=== PATIENT | female | born 1950 | race Hispanic/Latino ===

== ENCOUNTER 2016-08-24 10:16 | Emergency (ER) | payer OTHER ==
[~2016-08-24] VITALS: Ht 157.5 cm; Wt 74.8 kg
[~2016-08-24 10:16] MED LIST: AMLODIPINE BESY10 M1 PO; ASPIRIN EC81 M1 PO; ATIVAN0.5 M1 PO; CYCLOBENZAPRINE10 MG PO; DOXAZOSIN MESYLA2 M1 PO; FLEXERIL 10MG T10 MG PO; HYDROCHLOROTHIA25 M1 PO; LEVOCETIRIZINE D5 M1 PO; LISINOPRIL20 MG PO; LOPRESSOR100 M1 PO; LOSARTAN POTAS100 M1 PO; PRAVASTATIN SOD10 MG PO; PRILOSEC 20MG C20 MG PO; TRAMADOL HCL50 MG PO; TUMS500 MG PO
--- NOTE | 2016-08-24 10:33 | ED UPPER/LOWER EXTREMITY COMPL ---
History of Present Illness General Chief Complaint: Lower Extremity Problems Stated Complaint: RT KNEE PAIN BIBA Source: patient, old records, EMS Exam Limitations: no limitations Vital Signs & Intake/Output Vital Signs & Intake/Output Vital Signs Date Time Temp Pulse Resp B/P Pulse O2 O2 Flow FiO2 Ox Delivery Rate 08/24 1245 98.7 70 20 120/70 96 Room Air 08/24 1058 98.7 68 20 123/64 94 Room Air 08/24 1021 97.0 70 18 123/67 96 Room Air Allergies Coded Allergies: aspirin (GI BLEEDING 10/05/15) Reconcile Medications Amlodipine Besylate 10 MG TABLET 1 TAB PO DAILY HEART (Reported) Aspirin (Ecotrin*) 81 MG TABLET.DR 1 TAB PO DAILY . (Reported) Doxazosin Mesylate 2 MG TABLET 1 TAB PO AT BEDTIME . (Reported) Hydrochlorothiazide 25 MG TABLET 1 TAB PO DAILY HTN (Reported) Levocetirizine Dihydrochloride 5 MG TABLET 1 TAB PO DAILY UNKNOWN (Reported) Lisinopril 20 MG TABLET 2 TAB PO DAILY HTN (Reported) Losartan Potassium 100 MG TABLET 1 TAB PO DAILY HEART (Reported) Metoprolol Tartrate (Lopressor) 100 MG TABLET 1 TAB PO BID HEART (Reported) Omeprazole 20 MG CAPSULE.DR 1 CAP PO DAILY GASTRIC ULCER (Reported) Oxycodone HCl/Acetaminophen (Percocet 5-325 MG Tablet) 5 MG-325 MG TABLET 1 TAB PO BID PRN pain Pantoprazole Sodium 40 MG TABLET.DR 1 TAB PO DAILY GI (Reported) Pravastatin Sodium 10 MG TABLET 2 TAB PO DAILY CHOLESTEROL (Reported) Tramadol HCl 50 MG TABLET 1 TAB PO Q4-6 PRN PRN PAIN (Reported) Triage Note: PT BIBA FROM HOME FOR C/O RIGHT KNEE PAIN. PT IS S/P 2 INJECTIONS OF SYNVISC FOR OSTEOARTHRITIS. LAST INJECTION 08/22. PT GOES TO [facility] FOR INJECTIONS. ARRIVES TO TODAY C/O WORSENING PAIN TO RIGHT KNEE. PAIN ALSO RADIATES TO B/L HIPS. AWAITING EVAL. VSS. CHANGED INTO GOWN. Triage Nurses Notes Reviewed? yes Onset: Gradual Duration: day(s): (3), constant Timing: recent history Severity: mild, moderate Severity Numbers: 8 Pain/Injury Location: Bilateral: Hip. Method of Injury: unknown Modifying Factors: Improves With: pain medication, rest. Worsens With: movement. Associated Symptoms: none HPI: 65-year-old female with history of hypertension coronary artery disease arthritis presents emergency room brought in by ambulance complaining of bilateral hip pain that she's had for the past 3 days. The patient is status post 2 injections of [address]isc by dr benitez this past week to her right knee. The patient denies any specific knee pain. The pain to her hips is nonradiating. Her last dose of tramadol was last night which was helping for her symptoms. There's been no recent trauma or fall.. She denies any redness warmth or swelling to her knee no fevers or chills. She is scheduled to see her orthopedic physician again in 5 days. The patient denies any back, neck pain no chest pain abdominal pain nausea vomiting no urinary symptoms Contrary to triage note patient denies any knee pain to myself (JOANNE SIEGEL) Past History Travel History Traveled to [place] past 21 day No Medical History Any Pertinent Medical History? see below for history Neurological: NONE EENT: NONE Cardiovascular: hypertension, hyperlipidemia Respiratory: NONE Gastrointestinal: upper GI bleed, (FROM ASPIRIN 46 YRS AGO) Hepatic: NONE Renal: NONE Musculoskeletal: osteoarthritis Psychiatric: NONE Endocrine: NONE Blood Disorders: NONE Cancer(s): NONE LAB TECHNICIAN/Reproductive: NONE History of CDIFF: No Surgical History Surgical History: tubal ligation, cervical disc surgery x 2 Psychosocial History Services at Home None What is your primary language Serbian Tobacco Use: Never used ETOH Use: denies use Illicit Drug Use: denies illicit drug use Family History Family History, If Any: FATHER Relation not specified for: FH: diabetes mellitus Hx Contributory? No (JOANNE SIEGEL) Review of Systems Review of Systems Constitutional: Reports: see HPI. All Other Systems: Reviewed and Negative Comments Review of systems: See HPI, All other systems negative. Constitutional, no chills no fever, no malaise HEENT: No visual changes no sore throat no congestion Cardiovascular: No chest pain , no palpitation Skin,no rashes, no change in skin Respiratory: No dyspnea no cough no sputum GI: No nausea no vomiting, no diarrhea : No dysuria Muscle skeletal: joint pain, no joint swelling, no back pain, no neck pain, Neurologic: No numbness no confusion, no headache Psych: No stress,. Heme/endocrine: No bruising no bleeding Immunology: No lymphadenopathy, (JOANNE SIEGEL) Physical Exam Physical Exam General Appearance: well developed/nourished, alert, awake Comments: Well-developed well-nourished patient in no apparent distress. HEENT: Atraumatic, extraocular motion intact Neck: Supple, FROM, Back: FROM, Nontender Cardiovascular: Regular rate and rhythms no murmurs rubs or gallops, Respiratory: No respiratory distress. Patient speaking in full complete sentences. Breath sounds clear to auscultation bilaterally: NO W/R/R Upper Extremities: full range of motion Hip/Pelvis: Atraumatic/Stable. FROM. No pain with pelvic compression Knee: Mild ecchymosis over the lateral aspect of the right knee, there is no stranding erythema induration fluctuance no warmth, FROM. No joint swelling, no effusion. No laxity. Negative aruna/anterior drawer test. No pain with ROM Leg: Atraumatic. Nontender. No edema, 5 out of 5 strength in the lower extremity, normal dorsiflexion of great toe bilaterally, gross sensation is intact, patellar tendon reflex 2+ bilaterally. Ankle/Foot: Atraumatic/stable. Skin intact. FROM. No swelling, no effusion. No laxity on exam Pulses: Normal/equal DP/PT pulses bilaterally. Brisk cap refill Neuro: Alert and oriented x3 Skin: Warm & dry;No appreciable rash on exposed skin Psych: Mood affect normal, normal memory normal judgment. (JOANNE SIEGEL) Progress Differential Diagnosis: compartment syndrome, contusion, dislocation, fracture, gout, septic arthritis, sprain, tendon injury Plan of Care: Orders Procedure Date/time Status XRY-AP PELVIS 08/24 1032 Active XRY-KNEE COMPLETE RIGHT 08/24 1032 Active X-rays ordered patient medicated with tramadol I discussed with the patient at length all of their results. I had an extensive conversation regarding need for close follow up with their primary care physician as well as her orthopedist dr benitez whom she is scheduled to see this week as well as return precautions. I answered all of their questions, they feel comfortable with the plan and follow-up care. I discussed the medications that they will receive with the patient. I gave them signs and symptoms that could indicate an adverse reaction. I have advised them to limit their activities until they can see how they respond to the medication. (JOANNE SIEGEL) Diagnostic Imaging: Viewed by Me: Radiology Read. Discussed w/RAD: Radiology Read. Radiology Impression: PATIENT: RENETTA AGUILAR PRESENT AGE: 65 PATIENT ACCOUNT NO: [id number] : 48 LOCATION: [facility] ORDERING PHYSICIAN: JOANNE HENDERSON SERVICE DATE: 08/24/16 EXAM TYPE: RAD - XRY-AP PELVIS; XRY-KNEE COMPLETE RIGHT EXAMINATION: XR PELVIS and right knee CLINICAL INFORMATION: Pain COMPARISON: January 19, 2015 TECHNIQUE: AP view of the pelvis. 4 view right knee FINDINGS: There is no evidence of acute fracture or dislocation of the right knee. There is moderate narrowing of the medial joint space compartment. There is a right knee effusion. There is some spurring about the patellofemoral joint. There is no evidence of acute fracture or diastases of the pelvis. Hip joints appear maintained. Osteitis pubis is noted. There is sclerosis involving the inferior two thirds of the sacroiliac joints bilaterally. Changes of enthesopathy present. There is question of possible left iliac exostosis or postsurgical change. Facet arthropathy is seen at the L4-L5 and L5-S1 disc space levels. IMPRESSION: Degenerative change of the medial joint space compartment and patellofemoral joint right knee with right knee effusion. No acute fracture identified. Osteitis pubis and bilateral sacroiliitis. Facet arthropathy lower lumbar spine. No acute fracture or diastases of the pelvis. DICTATED BY: MARGARITO FIORE MD DATE/TIME DICTATED:08/24 ORAL SURGEON:DYANA DATE/TIME TRANSCRIBED:08/24/161103 CONFIDENTIAL, DO NOT COPY WITHOUT APPROPRIATE AUTHORIZATION. <Electronically signed in Other Vendor System> SIGNED BY: MARGARITO FIORE MD 08/24/16 1116 (JOANNE SIEGEL) Departure Departure Time of Disposition: 1146 Disposition: HOME OR SELF CARE Condition: Stable Clinical Impression Primary Impression: Arthritis Secondary Impressions: Knee effusion Referrals: IRAM GONZALEZ APRN (PCP/Family) Additional Instructions: follow up with your orthopedist dr benitez as scheduled.percocet for breakthrough pain this was sent to your [facility]. this may make you drowsy- use caution Ice as needed, return at anytime sooner with any concerns Departure Forms: Customer Survey General Discharge Information Prescriptions: Current Visit Scripts Oxycodone HCl/Acetaminophen (Percocet 5-325 MG Tablet) 1 TAB PO BID PRN pain #8 TAB (JOANNE SIEGEL) PA/RELIGIOUS EDUCATION COORDINATOR Co-Sign Statement Statement: ED Attending supervision documentation- x I saw and evaluated the patient. I have also reviewed all the pertinent lab results and diagnostic results. I agree with the findings and the plan of care as documented in the PA's/RELIGIOUS EDUCATION COORDINATOR's documentation. [] I have reviewed the ED Record and agree with the PA's/RELIGIOUS EDUCATION COORDINATOR's documentation. [] Additions or exceptions (if any) to the PAs/RELIGIOUS EDUCATION COORDINATOR's note and plan are summarized below: [] (SHYANN SALMON,FREDERICK)
--- NOTE | 2016-08-24 11:16 | RADIOLOGY REPORT ---
EXAMINATION: XR PELVIS and right knee CLINICAL INFORMATION: Pain COMPARISON: January 19, 2015 TECHNIQUE: AP view of the pelvis. 4 view right knee FINDINGS: There is no evidence of acute fracture or dislocation of the right knee. There is moderate narrowing of the medial joint space compartment. There is a right knee effusion. There is some spurring about the patellofemoral joint. There is no evidence of acute fracture or diastases of the pelvis. Hip joints appear maintained. Osteitis pubis is noted. There is sclerosis involving the inferior two thirds of the sacroiliac joints bilaterally. Changes of enthesopathy present. There is question of possible left iliac exostosis or postsurgical change. Facet arthropathy is seen at the L4-L5 and L5-S1 disc space levels. IMPRESSION: Degenerative change of the medial joint space compartment and patellofemoral joint right knee with right knee effusion. No acute fracture identified. Osteitis pubis and bilateral sacroiliitis. Facet arthropathy lower lumbar spine. No acute fracture or diastases of the pelvis.
[2016-08-24] MEDS ORDERED: TRAMADOL HCL50 M1 PO (11:33)
[2016-08-24] MEDS ORDERED: PRAVASTATIN SOD10 M2 PO (11:34)
[2016-08-24] MEDS ORDERED: OMEPRAZOLE20 M2 PO (11:35)
[2016-08-24] MEDS ORDERED: PANTOPRAZOLE SO40 M1 PO (11:36)
[2016-08-24] MEDS ORDERED: LISINOPRIL20 M1 PO (11:37)
[2016-08-24] MEDS ORDERED: PERCOCET 5-3251 EACH PO (12:14)
[2016-08-24 12:45] VITALS: BP 120/70
== END 2016-08-24 13:00 ==
LOC: ERH 10:16
DX: M17.9 Osteoarthritis of knee, unspecified (principal); M25.461 Effusion, right knee; M25.551 Pain in right hip; M25.552 Pain in left hip
CPT/HCPCS: 72170; 73562-RT

== ENCOUNTER 2017-06-17 05:13 | Inpatient (IN) | payer OTHER ==
[~2017-06-17] VITALS: Ht 160 cm; Wt 73.7 kg
[~2017-06-17 05:13] MED LIST changes: +LISINOPRIL20 M1 PO; +OMEPRAZOLE20 M2 PO; +PANTOPRAZOLE SO40 M1 PO; +PERCOCET 5-3251 EACH PO; +PRAVASTATIN SOD10 M2 PO; +TRAMADOL HCL50 M1 PO
--- NOTE | 2017-06-17 09:31 | Operative Report ---
Operative/Inv Procedure Report Surgery Date: 06/17/17 Name of Procedure: Left total knee arthroplasty Pre-Operative Diagnosis: Primary arthritis left knee Post-Operative Diagnosis: Same Estimated Blood Loss: less than 50ml Surgeon/Joinery Machinist: Ld Gray MD,Carlos Corcoran Anesthesia: block (SPINAL) IV Fluids: See anesthesia record Implants: Striker triathlon posterior stabilize knee size 3 femur, size 3 tibial baseplate , 27 patella 13 mm polyethylene insert Drains: None Specimens: Bone Tourniquet: 47 minutes Complications: None Condition: Stable Operative Indication: Patient is a 58-year-old female failed conservative treatment for osteoarthritis of the left knee. She was indicated for left total knee arthroscopy. This and benefits of procedure discussed with the patient detail in the office. Skilled set of hands was necessary provided by Ld Lucia physician assistant sales director weighted with limb positioning retraction component assembly throughout the case. Operative/Procedure Note Note: Once informed consent was obtained and the correct limb was identified patient brought to room placed on table in the supine position. After initiation of spinal anesthesia patient had a De León catheter placed and a thigh tourniquet placed on left lower extremity and left lower 70 is prepped and draped usual sterile fashion. To begin the procedure standard midline incision was made for total knee arthroplasty. Sharp dissection was carried down through skin and subcutaneous tissue and fat. A medial parapatellar arthrotomy was performed and the patella was everted. Fat pad is removed from the patellar tendon. The patellar thickness was measured and a planned resection of 9 mm of bone was taken off of the patella. Patella was measured be a size 27 patellar button and the lug holes were drilled for the patellar button. At this point patella was retracted laterally and protected and the knee was placed in flexion. Z retractors were placed to protect the collateral ligaments. Step drill was used to enter the intramedullary canal the femur. The distal femoral intramedullary cutting guide was placed with a 5 valgus cut and 10 mm resection set. Distal femoral cut was made without, patient. Femur sized to be a size 3 femur. A size 3 4-in-1 cutting block was placed and distal femur and the anterior, posterior, chamfer cuts were made. Once this was done the size 3 box cut guide was placed on the femur and a box cut was made for posterior stabilized knee. Posterior osteophytes removed off the posterior femoral condyles with curved osteotome. The lateral medial menisci were resected sharply. The cruciate limits had been resected and the tibia was translated anteriorly with a pickle fork retractor. Intramedullary canal the tibia was entered with a step drill and the intramedullary cutting guide for the tibia was placed. A plan resection of 4 mm of bone off the affected side was done without complication. Tibia sized to be a size 3 tibial baseplate. Trial reduction was done with size 3 tibial baseplate and a size 3 femur.. A size 11 mm Andrea plate was trial was placed and the knee was placed into extension. The knee was slightly loose and lacks to varus and valgus stress at 0 and 60 and we went up to a 13 mm polyethylene insert. Knee had full extension with this or insert and was stable to varus and valgus stress at 0 and 60. Knee had full range of motion from 0- 110 of flexion. Knee was taken through a range of motion and patella tracked nicely in the rotation of the tibial component was marked. The components were made removed and the tibial component was pinned in place with the keel cut. Keel cut was made and then removed the knee was pulse lavaged. Cement was mixed on the back table. The components were cemented in place with the tibial component cemented first followed by the femoral component. Excess cement was removed with curettes. The knee is placed in extension with a 13 mm trial insert. The patella button was then cemented in place. Once the cement had hardened the knee was taken through a range of motion found be stable. A 13 mm polyethylene insert was opened and locked into the tibial tray. The tourniquet was released and bleeding was stopped with electrocautery. X Burrall was infiltrated into the tissues for pain relief postoperatively. The arthrotomy is closed #1 Vicryl sutures. Subcutaneous tissues closed with #1 Vicryl and 2-0 Vicryl interrupted sutures. A sterile dressing was applied and patient was awakened taken recovery in stable condition.
--- NOTE | 2017-06-17 10:31 | Admission Core Measures ---
Acute Coronary Syndrome (CM) ACS Core Measures Acute Coronary Syndrome Diagnosis No Congestive Heart Failure (NEW) CHF Core Measures Congestive Heart Failure Diagnosis No Cerebrovascular Accident (NEW) CVA Core Measures CVA/TIA Diagnosis No Venous Thromboembolism VTE Core Shanti (View Protocol) VTE Risk Factors Surgery No Mechanical VTE Prophylaxis d/t N/A MechProphylax Ordered No VTE Pharm Prophylaxis d/t NA PharmProphylax ordered Problem List As ranked by this Provider includes Assessment & Plan 1. Primary osteoarthritis of left knee HOME MEDS Home Med List Aspirin (Ecotrin*) 81 MG TABLET.DR 1 TAB PO DAILY . (Reported) Doxazosin Mesylate 2 MG TABLET 1 TAB PO AT BEDTIME . (Reported) Levocetirizine Dihydrochloride 5 MG TABLET 1 TAB PO DAILY UNKNOWN (Reported) Losartan Potassium 100 MG TABLET 1 TAB PO DAILY HEART (Reported) Metoprolol Tartrate (Lopressor) 100 MG TABLET 1 TAB PO BID HEART (Reported) Omeprazole 20 MG CAPSULE.DR 1 CAP PO DAILY GASTRIC ULCER (Reported) Pantoprazole Sodium 40 MG TABLET.DR 1 TAB PO DAILY GI (Reported) Pravastatin Sodium 10 MG TABLET 2 TAB PO DAILY CHOLESTEROL (Reported)
--- NOTE | 2017-06-17 10:34 | Surgical Discharge Summary ---
Visit Information Visit Dates Admission Date: 06/17/17 History of Present Illness Chief Complaint: Left knee joint pain Medical History Neurological: NONE EENT: NONE Cardiovascular: hypertension, hyperlipidemia Respiratory: NONE Gastrointestinal: upper GI bleed, (FROM ASPIRIN 46 YRS AGO) Hepatic: NONE Renal: NONE Musculoskeletal: osteoarthritis Psychiatric: NONE Endocrine: NONE Blood Disorders: NONE Cancer(s): NONE ADJUNCT NURSING FACULTY/Reproductive: NONE History of CDIFF: No Surgical History Pertinent Surgical History: knee replacement (L 06/17/17), tubal ligation, cervical disc surgery x 2 Family History Relations & Conditions If Any: FATHER Relation not specified for: FH: diabetes mellitus Psychosocial History Services at Home: None What is Your Primary Language? Guatemalan Review of Systems: Refer to H&P Hospital Course Course Attending Physician: Carlos Gray MD [facility]: Patient underwent a L TKR by Dr Gray and was brought to the PACU in stable condition. Over the post op course, she worked with PT and was WBAT. She voided spontaneously and her pain was controlled with oral medication. She was deemed stable for discharge to [facility]/home with services. Allergies: Coded Allergies: aspirin (GI BLEEDING 10/05/15) Significant Procedures: L TKR on 06/17/17 Disposition Summary Disposition Principal Diagnosis: Left knee osteoarthritis Additional Diagnosis: Same, s/p L TKR Discharge Instructions General Discharge Information Code Status: Full Code Patient's Diet: Regular Patient's Activity: WBAT Follow-Up Instructions/Appts: [address] Gray, instructed to call sooner if needed. Copies To: Audi SALMON PHD,Luis E Spann
[2017-06-17] MEDS ORDERED: ELIQUIS2.5 M1 PO (10:39)
[2017-06-17] MEDS ORDERED: PERCOCET 5-3251 EACH PO (10:39)
--- NOTE | 2017-06-17 10:39 | Patient Discharge Instructions ---
Discharge Instructions General Discharge Information You were seen/treated for: Left knee osteoarthritis You had these procedures: Left total knee replacement Watch for these problems: Temp >101.3 F, increased redness or drainage of wounds Other wound care: Keep incisions clean and dry. May shower no bathing or soaking Diet Continue normal diet: Yes Activity Activity Self Limited: Yes Activity Limited to: Weight bear as tolerated Acute Coronary Syndrome Inclusion Criteria At DC or during hospital stay patient has or had the following: ACS DIAGNOSIS No Discharge Core Measures Meds if any: Prescribed or Continued at Discharge Meds if any: NOT Prescribed or Continued at Discharge Congestive Heart Failure Inclusion Criteria At DC or during hospital stay patient has or had the following: CHF DIAGNOSIS No Discharge Core Measures Meds if any: Prescribed or Continued at Discharge Meds if any: NOT Prescribed or Continued at Discharge Cerebrovascular accident Inclusion Criteria At DC or during hospital stay patient has or had the following: CVA/TIA Diagnosis No Discharge Core Measures Meds if any: Prescribed or Continued at Discharge Meds if any: NOT Prescribed or Continued at Discharge Venous thromboembolism Inclusion Criteria VTE Diagnosis No VTE Type NONE VTE Confirmed by (Test) NONE Discharge Core Measures - Per Current guidelines, there needs to be overlap - treatment for the first 5 days of Warfarin therapy. - If discharged on Warfarin prior to 5 days of - overlap therapy, the patient will need to be - assessed for post discharge needs including - *Post discharge parental anticoagulation - *Warfarin and/or parental anticoagulation education - *Follow up date to check INR post discharge At least 5 days overlap therapy as Inpatient No Meds if any: Prescribed or Continued at Discharge Note: Overlap Therapy is Warfarin and Anticoagulant Meds if any: NOT Prescribed or Continued at Discharge
[2017-06-17 11:50] VITALS: BP 120/72
--- NOTE | 2017-06-17 14:17 | PN- Orthopedic ---
Subjective Subjective: Postop check: Complaints of mild nausea, no abdominal pain. Left lower extremity pain. No acute events postoperatively Objective Vital Signs and I&Os Vital Signs Date Time Temp Pulse Resp B/P B/P Pulse O2 O2 Flow FiO2 Mean Ox Delivery Rate 06/17 1150 97.6 82 18 120/72 93 Room Air Intake & Output 06/17 1600 06/17 0800 06/17 0000 06/16 1600 06/16 0800 06/16 0000 Intake Total Output Total Balance Patient 162 lb Weight Physical Exam: Well-developed well-nourished no apparent distress. HEENT: Atraumatic, extraocular motion intact Neck: Supple, no lymphadenopathy Respiratory: No respiratory distress Extremities: No edema LEFT lower extremity dressing in place, Range of motion is 0-60. Compression wrap in place. ALPS in place Neurovascularly intact distally Bilateral calves are supple, nontender. Neuro: Alert and oriented x3 Psych: Mood affect normal, normal memory normal judgment. Skin: Warm and dry, no rash on exposed skin Assessment/Plan Assessment/Plan Postop day 0 status post left total knee arthroplasty Perioperative antibiotics. Pain medication as needed. Out of bed Physical therapy, weightbearing as tolerated IV fluids until tolerating adequate by mouth Regular diet Follow a.m. labs Eliquis for DVT prophylaxis ALPS for DVT prophylaxis Regular home meds Dressing change postop day 2 Core Measures Venous Thromboembolism VTE Risk Factors Surgery No Mechanical VTE Prophylaxis d/t N/A MechProphylax Ordered No VTE Pharm Prophylaxis d/t NA PharmProphylax ordered
[2017-06-17 14:41] VITALS: BP 110/80
[2017-06-17 16:18] VITALS: BP 120/70
[2017-06-17 18:15] VITALS: BP 160/88
[2017-06-17 22:21] VITALS: BP 120/60
[2017-06-18 00:17] VITALS: BP 120/70
[2017-06-18 04:00] VITALS: BP 122/70
--- NOTE | 2017-06-18 08:06 | PN- Orthopedic ---
Subjective Subjective: Reports one episode of emesis yesterday , now resolved. Taking Percocet for pain with fair control Ambualted to bathroom No dyspnea or chest pain. Objective Vital Signs and I&Os Date Time Temp Pulse Resp B/P B/P Pulse O2 O2 Flow FiO2 Mean Ox Delivery Rate 06/18 0400 97.5 74 20 122/70 95 Room Air 06/18 0017 97.7 77 20 120/70 93 Room Air 06/17 2233 75 120/60 06/17 2221 97.6 75 20 120/60 96 06/17 1815 98.3 75 160/88 06/17 1618 97.8 83 120/70 96 06/17 1441 97.1 74 18 110/80 96 06/17 1150 97.6 82 18 120/72 93 Room Air Intake & Output 06/18 0800 06/18 0000 06/17 1600 06/17 0800 06/17 0000 06/16 1600 Intake Total 960 1180 538 Output Total 450 600 700 Balance 510 580 -162 Intake, IV 600 700 188 Intake, Oral 360 480 350 Output, 700 Emesis Output, Urine 450 600 Patient 162 lb Weight Alert, oriented , appropriate, no distress Lungs clear bilat Heart regular Abdomen soft, non distended. LLE with bandage on , clean, dry.No swelling appreciated. Foot warm, distal pulses present, ROM as expected. Assessment/Plan Assessment/Plan s/p LTKA POD#1 Progressing as expected. Good pain control with current regimen Awaiting PT eval./ recommendation for dispo If does well with PO diet this morning, will Hp Lock IVF Anticoagulated with Eliquis per surgeon Will follow lab results today. Core Measures Venous Thromboembolism VTE Risk Factors Surgery No Mechanical VTE Prophylaxis d/t N/A MechProphylax Ordered No VTE Pharm Prophylaxis d/t NA PharmProphylax ordered
[2017-06-18 08:20] LABS: ABSOLUTE BASOPHIL COUNT 0 /CUMM (0.0-0.2); ABSOLUTE EOSINOPHIL COUNT 0 /CUMM (0.0-0.7); ABSOLUTE GRANULOCYTE CT 10.4 /CUMM (1.4-6.5); ABSOLUTE LYMPH COUNT 1.1 /CUMM (1.2-3.4); BASOPHIL % 0 % (0.0-2.0); EOSINOPHIL % 0 % (0-5); GRANULOCYTE % 83.1 % (42.2-75.2); HEMATOCRIT 31.3 % (37-47); MEAN CORPUSCULAR HGB 29.8 PG (27.0-31.0); MEAN CORPUSCULAR HGB CONC 33.3 G/DL (33.0-37.0); MEAN CORPUSCULAR VOLUME 89.3 FL (81.0-99.0); MEAN PLATELET VOLUME 9.9 FL (7.4-10.4); PLATELET COUNT 206 /CUMM (130-400); RBC DISTRIBUTION WIDTH 13.6 % (11.5-14.5); WHITE BLOOD CELL COUNT 12.6 /CUMM (4.8-10.8)
[2017-06-18 08:56] VITALS: BP 130/80
[2017-06-18 15:15] VITALS: BP 130/810
[2017-06-18 22:56] VITALS: BP 136/80
[2017-06-19 06:53] VITALS: BP 140/84
--- NOTE | 2017-06-19 07:24 | PN- Orthopedic ---
See Addendum Subjective Subjective: POD #2 s/p left TKR. Pain well controlled. No N/V, F/C, CP/SOB. Seen by PT, recommending STR. Objective Vital Signs and I&Os Vital Signs Date Time Temp Pulse Resp B/P B/P Pulse O2 O2 Flow FiO2 Mean Ox Delivery Rate 06/19 1353 98.9 88 18 130/90 96 06/19 0909 168/72 06/19 0909 164/72 06/19 0653 98.0 74 18 140/84 96 Room Air 06/18 2256 97.8 77 20 136/80 94 Room Air 06/18 2100 75 132/80 Intake & Output 06/19 1600 06/19 0800 06/19 0000 06/18 1600 06/18 0800 06/18 0000 Intake Total 350 277 367 1646 960 1180 Output Total 300 300 700 300 450 600 Balance 50 60 -340 900 510 580 Intake, IV 600 700 Intake, Oral 350 966 665 3290 360 480 Output, Urine 300 300 700 300 450 600 Physical Exam: Gen: AAOx3 in NAD cor: S1+S2+ Lungs: CTA se Abd: soft, NT Ext: left knee dressing removed. Incision c/D/I with angely. No erythema or drainage noted. No calf tenderness or edema to se lower extremities. Palpable DP pulses. Feet warm. Able to dorsifle and plantar flex. Current Medications: Current Medications Sig/Jessica Start time Last Medication Dose Route Stop Time Status Admin Apixaban 2.5 MG BID 06/18 1000 AC 06/19 PO 09 Celecoxib 400 MG DAILY 06/18 1000 06/19 PO 0909 Docusate Sodium 100 MG DAILY NEEDED PRN 06/17 1200 AC PO Doxazosin Mesylate 2 MG AT BEDTIME 06/17 PO 2058 Losartan Potassium 100 MG DAILY 06/17 1000 06/19 PO 0909 Metoprolol Tartrate 100 MG BID 06/17 PO 0909 Morphine Sulfate 2 MG Q3P PRN 06/17 1200 AC IV Morphine Sulfate 4 MG Q3P PRN 06/17 1200 AC 06/17 IV 1211 Omeprazole 20 MG DAILY AC 06/17 1000 AC 06/19 PO 0615 Ondansetron HCl 4 MG Q6P PRN 06/17 1200 AC 06/17 IV 1413 Oxycodone/ 1 TAB Q4P PRN 06/17 1200 AC Acetaminophen PO Oxycodone/ 2 TAB Q4P PRN 06/17 1200 AC 06/19 Acetaminophen PO 0615 Polyethylene Glycol 17 GM DAILY NEEDED PRN 06/17 1200 AC PO Senna/Docusate Sodium 2 TAB AT BEDTIME NEED.. 06/17 1200 AC PO Results Last 48 Hours of Labs: Laboratory Tests 06/19 06/18 0822 0645 Chemistry Sodium (137 - 145 mmol/L) 146 H 144 Potassium (3.5 - 5.1 mmol/L) 4.1 4.4 Chloride (98 - 107 mmol/L) 106 103 Carbon Dioxide (22 - 30 mmol/L) 27 26 Anion Gap (5 - 16) 13 14 BUN (7 - 17 mg/dL) 31 H 26 H Creatinine (0.5 - 1.0 mg/dL) 1.1 H 1.1 H Estimated GFR (>60 ml/min) 49 L 49 L BUN/Creatinine Ratio (7 - 25 %) 28.2 H 23.6 Hematology CBC w Diff NO MAN DIFF REQ NO MAN DIFF REQ WBC (4.8 - 10.8 /CUMM) 10.9 H 12.6 H RBC (4.20 - 5.40 /CUMM) 3.29 L 3.50 L Hgb (12.0 - 16.0 G/DL) 9.8 L 10.4 L Hct (37 - 47 %) 29.6 L 31.3 L MCV (81.0 - 99.0 FL) 90.0 89.3 MCH (27.0 - 31.0 PG) 29.7 29.8 MCHC (33.0 - 37.0 G/DL) 33.0 33.3 RDW (11.5 - 14.5 %) 13.7 13.6 Plt Count (130 - 400 /CUMM) 168 206 MPV (7.4 - 10.4 FL) 10.0 9.9 Gran % (42.2 - 75.2 %) 64.1 83.1 H Lymphocytes % (20.5 - 51.1 %) 23.2 8.7 L Monocytes % (1.7 - 9.3 %) 12.1 H 8.2 Eosinophils % (0 - 5 %) 0.4 0 Basophils % (0.0 - 2.0 %) 0.2 0 Absolute Granulocytes (1.4 - 6.5 /CUMM) 7.0 H 10.4 H Absolute Lymphocytes (1.2 - 3.4 /CUMM) 2.5 1.1 L Absolute Monocytes (0.10 - 0.60 /CUMM) 1.3 H 1.0 H Absolute Eosinophils (0.0 - 0.7 /CUMM) 0 0 Absolute Basophils (0.0 - 0.2 /CUMM) 0 0 Assessment/Plan Assessment/Plan A: POD #2 s/p left TKR; AVSS Plan; Daily dry dressing changes to left knee. PT/OT to continue. D/C to STR tomorrow. Core Measures Venous Thromboembolism VTE Risk Factors Surgery No Mechanical VTE Prophylaxis d/t N/A MechProphylax Ordered No VTE Pharm Prophylaxis d/t NA PharmProphylax ordered
[2017-06-19 09:29] LABS: ABSOLUTE BASOPHIL COUNT 0 /CUMM (0.0-0.2); ABSOLUTE EOSINOPHIL COUNT 0 /CUMM (0.0-0.7); ABSOLUTE LYMPH COUNT 2.5 /CUMM (1.2-3.4); ABSOLUTE MONOCYTE COUNT 1.3 /CUMM (0.10-0.60); BASOPHIL % 0.2 % (0.0-2.0); EOSINOPHIL % 0.4 % (0-5); GRANULOCYTE % 64.1 % (42.2-75.2); HEMATOCRIT 29.6 % (37-47); MEAN CORPUSCULAR HGB 29.7 PG (27.0-31.0); PLATELET COUNT 168 /CUMM (130-400); RBC DISTRIBUTION WIDTH 13.7 % (11.5-14.5); RED BLOOD CELL CT 3.29 /CUMM (4.20-5.40); WHITE BLOOD CELL COUNT 10.9 /CUMM (4.8-10.8)
--- NOTE | 2017-06-19 10:42 | RADIOLOGY REPORT ---
EXAMINATION: XR KNEE, LEFT CLINICAL INFORMATION: Status post total arthroplasty of the left knee COMPARISON: None TECHNIQUE: 2 of the left knee. FINDINGS: Patient is status post cemented total knee arthroplasty. Components in expected orientation. No periprosthetic fracture. Skin angely and subcutaneous emphysema noted from surgery IMPRESSION: Unremarkable postoperative x-rays demonstrating a cemented total knee arthroplasty.
[2017-06-19 13:53] VITALS: BP 130/90
[2017-06-19 22:45] VITALS: BP 128/80
[2017-06-20 06:50] VITALS: BP 102/68
--- NOTE | 2017-06-20 08:22 | PN- Orthopedic ---
Subjective Subjective: PATIENT DOING WELL s/p left total knee she states pain not bad. she has been up and ambulating Objective Vital Signs and I&Os Vital Signs Date Time Temp Pulse Resp B/P B/P Pulse O2 O2 Flow FiO2 Mean Ox Delivery Rate 06/20 0650 98.2 76 18 102/68 97 Room Air 06/19 2245 98.1 89 19 128/80 96 Room Air 06/19 2125 98.9 88 18 130/90 06/19 1353 98.9 88 18 130/90 96 06/19 0909 168/72 06/19 0909 164/72 Intake & Output 06/20 1600 06/20 0800 06/20 0000 06/19 1600 06/19 0800 06/19 0000 Intake Total 300 350 360 360 Output Total 300 300 700 Balance 300 50 60 -340 Intake, Oral 300 350 360 360 Output, Urine 300 300 700 Physical Exam: on physical exam dressing clean dry incision clean, neuro intact toes mobile Assessment/Plan Assessment/Plan doing well s/p left total knee ready for dc to home with home aides and PT Core Measures Venous Thromboembolism VTE Risk Factors Surgery No Mechanical VTE Prophylaxis d/t N/A MechProphylax Ordered No VTE Pharm Prophylaxis d/t NA PharmProphylax ordered Attending MD Review Statement Attending Statement Attending MD Statement: examined this patient
[2017-06-20] MEDS ORDERED: PERCOCET 5-3251 EACH PO (11:43)
[2017-06-20] MEDS ORDERED: ELIQUIS2.5 M1 PO (11:43)
--- NOTE | 2017-06-20 11:48 | PN- Orthopedic ---
Subjective Subjective: Pt has no major complaints this morning. Pain is well controlled and she is anxiously awaiting discharge. Tolerating diet, voiding, +BM. Objective Vital Signs and I&Os Vital Signs Date Time Temp Pulse Resp B/P B/P Pulse O2 O2 Flow FiO2 Mean Ox Delivery Rate 06/20 0650 98.2 76 18 102/68 97 Room Air 06/19 2245 98.1 89 19 128/80 96 Room Air 06/19 2125 98.9 88 18 130/90 06/19 1353 98.9 88 18 130/90 96 Intake & Output 06/20 1600 06/20 0800 06/20 0000 06/19 1600 06/19 0800 06/19 0000 Intake Total 300 350 360 360 Output Total 300 300 700 Balance 300 50 60 -340 Intake, Oral 300 350 360 360 Output, Urine 300 300 700 Physical Exam: Gen: Awake, alert NAD. Cardiac: regular Pulm: CTA bilaterally Ext: L knee incision is c/d/i with angely in place. Knee swelling within expected limits. Mild LE edema within expected limits. Strength 4/5. Results Last 48 Hours of Labs: Laboratory Tests 06/19 0822 Chemistry Sodium (137 - 145 mmol/L) 146 H Potassium (3.5 - 5.1 mmol/L) 4.1 Chloride (98 - 107 mmol/L) 106 Carbon Dioxide (22 - 30 mmol/L) 27 Anion Gap (5 - 16) 13 BUN (7 - 17 mg/dL) 31 H Creatinine (0.5 - 1.0 mg/dL) 1.1 H Estimated GFR (>60 ml/min) 49 L BUN/Creatinine Ratio (7 - 25 %) 28.2 H Hematology CBC w Diff NO MAN DIFF REQ WBC (4.8 - 10.8 /CUMM) 10.9 H RBC (4.20 - 5.40 /CUMM) 3.29 L Hgb (12.0 - 16.0 G/DL) 9.8 L Hct (37 - 47 %) 29.6 L MCV (81.0 - 99.0 FL) 90.0 MCH (27.0 - 31.0 PG) 29.7 MCHC (33.0 - 37.0 G/DL) 33.0 RDW (11.5 - 14.5 %) 13.7 Plt Count (130 - 400 /CUMM) 168 MPV (7.4 - 10.4 FL) 10.0 Gran % (42.2 - 75.2 %) 64.1 Lymphocytes % (20.5 - 51.1 %) 23.2 Monocytes % (1.7 - 9.3 %) 12.1 H Eosinophils % (0 - 5 %) 0.4 Basophils % (0.0 - 2.0 %) 0.2 Absolute Granulocytes (1.4 - 6.5 /CUMM) 7.0 H Absolute Lymphocytes (1.2 - 3.4 /CUMM) 2.5 Absolute Monocytes (0.10 - 0.60 /CUMM) 1.3 H Absolute Eosinophils (0.0 - 0.7 /CUMM) 0 Absolute Basophils (0.0 - 0.2 /CUMM) 0 Assessment/Plan Assessment/Plan Patient is a 66-year-old female who is now postoperative day #3 status post left total knee arthroplasty. She is progressing well from a surgical standpoint. Plan: -Patient is cleared for discharge to home with nursing and PT services area did -Dry dressing change once daily. -Eliquis for DVT prophylaxis. -Pain control with Percocet as needed. -Ambulate/WBAT with rolling walker and progress per physical therapy recommendations. -Patient can follow-up with Dr. Gray at 2 weeks for removal of angely. Core Measures Venous Thromboembolism VTE Risk Factors Surgery No Mechanical VTE Prophylaxis d/t N/A MechProphylax Ordered No VTE Pharm Prophylaxis d/t NA PharmProphylax ordered
== END 2017-06-20 12:28 | disposition home health service (06) | DRG 470 ==
LOC: SDA 05:13 → ENRESERV 10:42 → ENTRNSPT 11:14 → EDTRNSPT 11:30 → EDTRNSPTSTS 11:30 → 2NA 11:42 → CMPTRNSPT 11:48 → ENTRNSPT 06-20 12:12 → EDTRNSPT 06-20 12:17 → EDTRNSPTSTS 06-20 12:17 → 2NA 06-20 12:28 → CMPTRNSPT 06-20 13:05
PROVIDERS: Physician Assistant Surgical
PROC: 0SRD0J9 Replacement of Left Knee Joint with Synthetic Substitute, Cemented, Open Approach (ICD-10-PCS; principal; 2017-06-17)
PROC: 3E0T3BZ Introduction of Anesthetic Agent into Peripheral Nerves and Plexi, Percutaneous Approach (ICD-10-PCS; 2017-06-17)
DX: M17.12 Unilateral primary osteoarthritis, left knee (principal); E78.5 Hyperlipidemia, unspecified; I10 Essential (primary) hypertension; Z88.6 Allergy status to analgesic agent; K21.9 Gastro-esophageal reflux disease without esophagitis; J45.909 Unspecified asthma, uncomplicated
CPT/HCPCS: 2NAP; 36415; 73560-LT; 82436; 87086; 88305; 97110-GO; 97116-GO; 97161-GP; 97530-GO; C1713; C9290; J1100; J2405; J2550; J3370; J3490; J7040; J7060